=== PATIENT | female | born 1965 | race Caucasian/White ===

== ENCOUNTER → 2016-03-31 | Outpatient (CLI) | payer BC, OTHER ==
[2015-02-01 08:38] VITALS: BP 118/76
[~2016-03-31] MED LIST: ASPI325T4 PO; ATORVASTATIN CA80 MG PO; CLOP75TA PO; GEMF600T3 PO; INSU100V SQ; INSU300I SQ; LEVO125T5 PO; METF500T4 PO; METO25TA9 PO; PREG150C PO; SERT100T PO
--- NOTE | 2016-03-31 11:06 | KCIC ---
PROCEDURE MR of the right ankle HISTORY Right ankle pain. Achilles pain. Pain since June. TECHNIQUE Standard noncontrast images are obtained. COMPARISON None FINDINGS The peroneal tendons are intact. The anterior talofibular ligament is slightly thickened and ill-defined compatible with sprain. No rupture or laxity. Similar findings at the calcaneofibular ligament and posterior talofibular ligament. Anterior inferior tibiofibular ligament is intact. The posterior tibial and flexor tendons are intact. No acute tear of the medial ligamentous complex. The anterior tibial and extensor tendons are intact. There is moderate thickening of the distal Achilles tendon and the Achilles tendon insertion, measuring 15 mm wide by 12 mm AP just above the insertion. There is mild internal signal. However, no focal defect or rupture. Small enthesophytes at the adjacent calcaneus. The plantar aponeurosis is intact. Subtalar joints are patent. Tarsal sinus is intact. The talar dome is intact. Small tibiotalar and small posterior subtalar joint effusion. No bone lesion or acute fracture. Lisfranc ligament complex is intact as is tarsometatarsal alignment. No acute soft tissue injury. IMPRESSION 1. Moderate distal and insertional Achilles tendinosis. No acute defect or rupture. 2. Sprain or scarring of the lateral ankle ligaments. Electronically signed by: Jose Nicolas MD (Mar 31, 2016 11:05:19)
== END | disposition home or self-care (01) ==
LOC: KCIC MRI 09:04
PROVIDERS: ATTEND Podiatrist
DX: S93.431A Sprain of tibiofibular ligament of right ankle, initial encounter (principal); M76.61 Achilles tendinitis, right leg; M25.471 Effusion, right ankle; X58.XXXA Exposure to other specified factors, initial encounter; Y93.89 Activity, other specified; Y92.89 Other specified places as the place of occurrence of the external cause; Y99.8 Other external cause status
CPT/HCPCS: 73721

== ENCOUNTER 2016-07-08 07:59 | Day surgery (SDC) | payer OTHER ==
[~2016-07-08] VITALS: Ht 157.5 cm; Wt 103.4 kg
[~2016-07-08 07:59] MED LIST changes: +BUPIVACAINE MPF 0.5% 30 ML VIAL. ONE; +CLINDAMYCIN 900MG PREMIX 50 ML IV PRN; +CRESTOR20 MG PO; +CYCL10TA2 PO; +DICL75TA PO; +ERYT250T14 PO; +FURO20TA3 PO; +HYDROmorphone 2 MG/ML VIAL IV PRN; +INSU100I32 SQ; +IV RINGERS,LACTATED 1000ML 1,000 ML IV SCH; +LIDOCAINE 1% 1 ML SYRINGE. ID PRN; +LIDOCAINE 1% 20 ML VIAL. ONE; +ONDANSETRON PF 4 MG/2 ML VIAL. IV PRN; +POTA10TA12 PO; +PROCHLORPERAZINE 10 MG/2 ML VIAL. IV PRN; +TRAZ100T12 PO; +fentaNYL PF VIAL 100 MCG/2 ML VIAL IV PRN
[2016-07-08] MEDS ORDERED: LIDOCAINE 2% 100 MG/5 ML SYRINGE. ONE (08:07)
[2016-07-08] MEDS ORDERED: PROPOFOL 20 ML IV ONE (08:07)
[2016-07-08] MEDS ORDERED: fentaNYL PF VIAL 100 MCG/2 ML VIAL ONE (08:07)
[2016-07-08] MEDS ORDERED: SUCCINYLCHOLINE 200 MG/10 ML VIAL. ONE (09:17)
[2016-07-08] MEDS ORDERED: ePHEDrine PF IN SALINE 50 MG/5 ML DISP.SYRIN IV ONE (10:28)
[2016-07-08] MEDS ORDERED: DEXAMETHASONE SOD PHOS 20 MG/5 ML VIAL. ONE (10:28)
[2016-07-08] MEDS ORDERED: ROPIVacaine 0.5% PF 30 ML VIAL. ONE (10:28)
[2016-07-08] MEDS ORDERED: SEVOFLURANE 61 TO 120 MINUTES. IH ONE (10:28)
[2016-07-08] MEDS ORDERED: ACETAMINOPHEN INTRAVENOUS 100 ML IV ONE (10:28)
[2016-07-08] MEDS ORDERED: ONDANSETRON PF 4 MG/2 ML VIAL. ONE (10:52)
[2016-07-08] MEDS ORDERED: PHENYLEPHRINE in 0.9% NACL PF 1 MG/10 ML DISP.SYRIN. IV ONE (11:08)
--- NOTE | 2016-07-08 11:12 | DISCH ---
DISCHARGE INSTRUCTIONS Condition on Discharge Condition on Discharge: Stable Activity After Discharge Activity Instructions for Disc: Other, see below Bathing Instructions: Shower-keep dressing dry Weight Bearing Status after Di: Non weight bearing Diet after Discharge Diet after Discharge: Regular Wound Incision Care Wound/Incision Care: Ice to area for comfort, Keep wound/cast CDI, Keep wound elevated, Do not change dressing Contacting the DRDestiny after DC Call your doctor for: Concerns you may have Follow-Up Follow up with: Maci in 2wks REX TAVARES II, MD July 08, 2016 11:12
--- NOTE | 2016-07-08 11:14 | PDOC ---
BRIEF OPERATIVE NOTE Date: July 08, 2016 Pre-Op Diagnosis R chronic Achilles tendonitis Post-Op Diagnosis same Procedure Performed R Achilles debridement; R Angela Surgeon Maci Ostomy Rn Naya Anesthesiologist [facility] Anesthesia Type: General Blood Loss 10mL Complications none REX TAVARES II, MD July 08, 2016 11:14
[2016-07-08] MEDS ORDERED: oxyCODONE/APAP 5/325 1 TAB TABLET ONE (12:23)
[2016-07-08] MEDS ORDERED: DOCU-27 PO (12:28)
[2016-07-08] MEDS ORDERED: OXYC-323 PO (12:28)
[2016-07-08] MEDS ORDERED: ONDA4TAB10 SL (12:29)
[2016-07-08] MEDS ORDERED: oxyCODONE/APAP 5/325 1 TAB TABLET PO ONE (12:30)
[2016-07-08 13:01] VITALS: BP 121/58
--- NOTE | 2016-07-08 17:19 | OP ---
DATE OF SURGERY: 07/08/2016 SURGEON: Joao Tavares M.D. SNOW GROOMER: Jesica Person. ANESTHESIA: General. PREOPERATIVE DIAGNOSIS: Chronic right Achilles tendinitis. POSTOPERATIVE DIAGNOSIS: Chronic right Achilles tendinitis. PROCEDURES PERFORMED: 1. Open right Achilles tendon debridement. 2. Right Angela procedure. COMPLICATIONS: None. ESTIMATED BLOOD LOSS: 10 mL. TOURNIQUET TIME: 20 minutes. FINDINGS: The patient had some small amount of disorganized and yellow-appearing material midsubstance at the distal portion of her Achilles. REASON FOR PROCEDURE: The patient is a very pleasant 51-year-old female who has suffered from, approximately one year of, Achilles pain. She had failed conservative therapies including injections, anti-inflammatories, and several rounds of physical therapy and walking boot. Because of this, we had a discussion of risks, benefits, and alternatives of the above procedure and she elected to proceed. DESCRIPTION OF PROCEDURE: The patient was greeted in the preoperative area by myself, where the same extremity was marked and verified. She was taken to the operative suite and antibiotics were started en route. Once in the OR, she was transferred gently supine to the OR table and had successful induction of general anesthesia. All pressure points were padded and she was secured to the bed. We then placed a nonsterile tourniquet to her right thigh. We then proceeded to prep and drape right lower extremity in a usual sterile fashion and conducted a standard preoperative timeout. The toes were covered with Coban. I then exsanguinated the extremity with an Esmarch and insufflated the tourniquet to 300 mmHg. I then palpated for her transition zone between her gastroc muscle and tendons expansion at her mid-calf and made approximately an 8 cm incision transverse or longitudinally along her calf. I dissected the subcutaneous tissue and cauterized bleeders with electrocautery. I identified the fascia and incised this in line with skin incision. I then identified the proximal gastroc tendon and I bluntly and digitally freed it up from adhering tissue and then placed my vaginal speculum ensuring I protected the sural nerves and ensuring that the full tendon was visible. I then released this with my Metzenbaums scissors. This gave approximately another 15 degrees of dorsiflexion. We were able to get her a well past neutral compared to preop, which was a neutral during my examination under anesthesia. After this, I then palpated for her Achilles tendon central portion and made an incision just medial to that for approximately 4-5 cm corresponding to the area on MRI, which I have reviewed. I then used a [place] to tease apart the fibers in the mid portion and worked in this area until I identified what I thought would correspond to the abnormal appearing tissue on MRI. I used a small curette to debride some yellowish tissue from the mid portion and mid substance of the Achilles tendon. After doing this, I then repaired my longitudinal split with a 2-0 Ethibond, simple interrupted. I then closed the skin with 2-0 nylon in a horizontal mattress fashion. We then let the tourniquet down and cauterized a couple of bleeders around my Angela procedure site and then I irrigated this out. I then closed the fascia with a combination of simple interrupted and a [id number] 0 Vicryl. Inverted interrupted 2-0 was used for subcutaneous tissue, running 4-0 Monocryl was used in a subcuticular fashion was used for skin at the Angela site. Prior to completion of wound closure, all counts were reported correct x 2. No complications. I then injected approximately 15 mL of a local anesthetic mixture into the elias-incisional areas. After this, the leg was cleansed and dry and sterile dressing was applied after Steri-Strips and Xeroform gauze were applied. Sterile cast paddings then applied and we then placed into a well-padded AO splint. Postop plan is to discharge her from the hospital stay. She will be nonweightbearing. She will follow up with me in 2 weeks, sooner should problems arise. JOAO TAVARES MD DR: JOBY/patience JOB#: [id number] / [id number] SAYRA
== END 2016-07-08 13:15 | disposition home or self-care (01) ==
LOC: SURG 07:59
PROVIDERS: ATTEND Orthopaedic Surgery Sports Medicine
DX: M76.61 Achilles tendinitis, right leg (principal); E78.00 Pure hypercholesterolemia, unspecified; I10 Essential (primary) hypertension; E11.9 Type 2 diabetes mellitus without complications; F41.9 Anxiety disorder, unspecified; F32.9 Major depressive disorder, single episode, unspecified; Z90.710 Acquired absence of both cervix and uterus; Z98.42 Cataract extraction status, left eye; Z86.73 Personal history of transient ischemic attack (TIA), and cerebral infarction without residual deficits; Z98.41 Cataract extraction status, right eye; Z90.49 Acquired absence of other specified parts of digestive tract; Z98.890 Other specified postprocedural states
CPT/HCPCS: 27687; 82947; J0131; J0780; J1100; J2370; J2405; J2704; J2795; J3010; J3490; J0330

== ENCOUNTER → 2016-12-08 | Outpatient (CLI) | payer OTHER ==
[~2016-12-08] MED LIST changes: -ASPI325T4 PO; +ASPI325T8 PO; -BUPIVACAINE MPF 0.5% 30 ML VIAL. ONE; -CLINDAMYCIN 900MG PREMIX 50 ML IV PRN; +DOCU-109 PO; -HYDROmorphone 2 MG/ML VIAL IV PRN; -IV RINGERS,LACTATED 1000ML 1,000 ML IV SCH; -LIDOCAINE 1% 1 ML SYRINGE. ID PRN; -LIDOCAINE 1% 20 ML VIAL. ONE; +METO-239 PO; -METO25TA9 PO; +ONDA4TAB10 SL; -ONDANSETRON PF 4 MG/2 ML VIAL. IV PRN; +OXYC-323 PO; -PROCHLORPERAZINE 10 MG/2 ML VIAL. IV PRN; -fentaNYL PF VIAL 100 MCG/2 ML VIAL IV PRN
--- NOTE | 2016-12-08 13:13 | KCIC ---
MRI Lumbar Spine without contrast History: Low back pain, radiculopathy, falls Technique: Multiplanar, multi sequential noncontrast MR imaging was performed of the lumbar spine. Contrast: None Comparison: October 23, 2015 Findings: Lumbar vertebral body stature and AP alignment are preserved. There is again minimal degenerative disc disease L1-2. Conus terminates normally at L1-2. There is no significant marrow edema. There is again prominent subcutaneous edema of the lower back. L3-L4: There is again mild buckling of the ligamentum flavum and facet degenerative change. Neural foramina and spinal canal remain adequate. L4-L5: There is again negligible posterior bulge. Spinal canal is overall adequate. Neural foramina are adequate. L5-S1: Spinal canal and neural foramina are adequate. Impression: 1. There is no new significant lumbar spinal stenosis or neural foramina compromise. There is again minimal degenerative disc disease L1-2. There is again nonspecific edema of the posterior subcutaneous fat of the lower back. Electronically signed by: Lisandro Rosenthal MD (12/08/2016 1:10 PM) [facility]
== END | disposition home or self-care (01) ==
LOC: KCIC MRI 12:19
DX: M51.16 Intervertebral disc disorders with radiculopathy, lumbar region (principal)
CPT/HCPCS: 72148

== ENCOUNTER → 2017-01-07 | Outpatient (CLI) | payer OTHER ==
[~2017-01-07] MED LIST changes: +CHOL100013 PO; +ERYT250C8 PO; +TORS20TA2 PO; +TRAM50TA PO
--- NOTE | 2017-01-08 00:39 | PAIN ---
DATE OF SERVICE: 01/07/2017 CHIEF COMPLAINT: Low back, bilateral lower extremity pain. HISTORY OF PRESENT ILLNESS: This is a 51-year-old female who presents with history of pain, back and bilateral lower extremities since about 09/2015, gradually increasing, not a result of any specific injury or action that she is aware of but this has been increasingly worse in the low back, bilateral lower extremities, radiating in the posterior gluteus, thighs, lower legs also anterior thighs, medial thighs, lower legs, medial calves to the ankle bilaterally. The patient reports essentially worse on the left than the right but present bilaterally, almost as intense equally. The patient reports it is a sharp, throbbing, shooting with numbness and tingling, radiating pain, cramping, burning, stinging, aching, wakes her from sleep about twice a night, does not affect her bowel or bladder control, but does affect her ability to walk. She uses a walker or cane occasionally, and has a cane with her today. The patient has had physical therapy in 11/2016 at [facility] which was helpful but only temporarily, is doing all the exercises on her own continuously and still having some significant pain. The patient rates her disability rating from 0 to 10; 10 being the worst, is at 9 with family and home responsibilities, social activity, occupation; 8 with recreation and sexual activities; 7 with self care and life support activities is 6 on a scale of 10. The patient has tried tramadol as well, which does not significantly decrease the pain and is no longer taking this. The patient did have MRI scan dated 12/08/2016 showing comparison from 10/23/2015 no new significant lumbar stenosis or neural foraminal compromise. Minimal degenerative disk disease at L1-L2 with L3-L4 mild buckling of ligamentum flavum and facet degenerative change. L4-L5 shows negligible posterior bulge overall adequate spinal canal or neural foramina. The patient reports no loss of motor function, but her lower extremities fatigue significantly much faster than they did a year ago, again worse slightly on the left than the right, better with sitting or lying down but still waking her from sleep at night, much worse with walking and standing, change in positions for about 15 minutes on her feet before she has to find a place to sit and rest. PAST MEDICAL HISTORY: Significant for type 2 diabetes, insulin-dependent; hypertension, coronary artery disease with stents placed and open bypass grafting; history of gastroparesis; gastritis; dizziness; headaches; arthritis; peripheral neuropathy; history of stroke; carpal tunnel syndrome. PREVIOUS SURGERY: Include carpal tunnel repair, cataract extractions, coronary artery bypass grafting, hysterectomy, ankle surgery, neck tumor removed, appendectomy. CURRENT MEDICATIONS: Include cyclobenzaprine, diclofenac, potassium, Crestor, insulin, metoprolol, metformin, levothyroxine, Lyrica, torsemide, tramadol, erythromycin, vitamin D, Colace, clopidogrel, sertraline and daily baby aspirin. ALLERGIES: The patient is allergic to PENICILLIN, CODEINE, SULFA, and MORPHINE. FAMILY HISTORY: Significant for cancer, heart disease, strokes, hypertension, thyroid disease, cholesterol and obesity as well as diabetes. SOCIAL HISTORY: The patient does not smoke, does not drink alcohol. Single, lives on her own, currently in [place], [place]. REVIEW OF SYSTEMS: The patient's review of systems is positive for those items mentioned in history of present illness. All systems reviewed and otherwise negative. It is complete, full and well documented on the patient's chart. PHYSICAL EXAMINATION: VITAL SIGNS: The patient's blood pressure is 102/47, pulse 57, respirations 18, temperature 98.4 degrees Fahrenheit, height is 5 feet 2 inches, weighs 234 pounds. GENERAL: The patient is awake, alert, oriented, appropriate, very pleasant demeanor. HEENT: Shows normocephalic, atraumatic. Extraocular movements are intact, symmetrical. Oral cavity, mucous membranes are moist and pink. Dentition is intact. NECK: Shows anterior throat supple without palpable lymphadenopathy noted. Swallow reflex is symmetrical. CHEST: Shows normal on inspection. Breath sounds clear to auscultation bilaterally. HEART: Shows S1 and S2 clear. ABDOMEN: Soft, obese, nontender, nondistended. No palpable organomegaly. No rebound or guarding demonstrated. BACK: Shows spine grossly midline. Slight exaggeration of thoracic kyphosis and mild flattening of lumbar lordotic curvature. No previous bruises, lesions, scars or lesions noted on the skin. The patient's lumbar paraspinous muscle shows symmetrical on inspection with palpation shows some moderate tenderness diffusely throughout the upper, middle and lower distribution bilaterally, right equal to left. The patient shows good rotation and motion of the lumbar spine, both laterally greater than 10 degrees right and left as well as extension greater than 10 degrees, forward flexion 45 degrees without significant pain reported. No tenderness over the sacrum or sacroiliac regions. Lower extremities show deep tendon reflexes at 1+ in the patellar and tendo calcaneus tendons. Motor exam is approximately 4 on a scale of 5, but equal and symmetrical with dorsiflexion, extension, quadriceps and hamstring flexion. Peripheral pulses are 1+ posterior tibial and dorsalis pedis pulses. No peripheral edema is noted. No clubbing, no cyanosis. Lower extremities are warm and dry to touch, equal in color and appearance. Straight leg raise noted to be positive on the left at about 40 degrees right at about 45 degrees, both are decreased with knee flexion. Gaenslen's and Bert's maneuvers are negative bilaterally. The patient is able to stand. It is difficult to even stand on her toes as she loses balance quickly and walks with a slight shuffling gait, appears to favor the left lower extremity slightly more than right, again using a cane in her right hand. IMPRESSION: 1. This is a 51-year-old female with approximate a year and half history of low back, bilateral lower extremity pain in a radicular fashion with both L4-L5 and L5-S1 dermatomal distribution. 2. MRI scan of lumbar spine as noted. 3. Hypertension. 4. Coronary artery disease. 5. Arthritis. 6. Diabetes. PLAN: Options were discussed with the patient including conservative medical management, physical therapy and interventional technique. She would like to pursue interventional techniques. 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 The patient will continue taking medication. We will check with Cardiology and if this is deemed safe and appropriate, we will have her hold it at that time and return for epidural injection. In the meantime, the patient will continue with exercise as well as stretching and strengthening exercises that she is doing and will follow up as scheduled. LULÚ CHAMORRO MD DR: ANISA/patience JOB#: [id number] / [id number] NESTOR Carlos
== END | disposition home or self-care (01) ==
LOC: PNCL 07:55
PROVIDERS: ATTEND Anesthesiology
DX: I10 Essential (primary) hypertension (principal); E11.9 Type 2 diabetes mellitus without complications; I25.10 Atherosclerotic heart disease of native coronary artery without angina pectoris; M54.17 Radiculopathy, lumbosacral region; M79.605 Pain in left leg; G56.00 Carpal tunnel syndrome, unspecified upper limb; Z88.0 Allergy status to penicillin
CPT/HCPCS: 99214

== ENCOUNTER → 2017-01-19 | Outpatient (CLI) | payer OTHER ==
[~2017-01-19] MED LIST changes: +IOHEXOL 180 MG/ML 10 ML VIAL. ONE; +methylPREDNISolone ACETATE 40 MG/ML VIAL. ONE; +methylPREDNISolone ACETATE 80 MG/ML VIAL. ONE
--- NOTE | 2017-01-19 11:23 | PAIN ---
DATE OF SERVICE: 01/19/2017 DIAGNOSES: Lumbar radiculopathy with lumbar degenerative disk disease. HISTORY OF PRESENT ILLNESS: The patient is a 51-year-old female who returns for followup status post evaluation and holding her Plavix after clearance from her primary physician. She has been off it now for 7 days. The patient returns reporting still significant pain in the low back, bilateral lower extremities, somewhat worse on the left than the right, as it was before. No new motor or sensory deficits, no new bowel or bladder incontinence, still significant pain, radiating to posterior gluteus, posterior thighs, lateral thighs, anterior thighs, medial and posterior lower legs, is an aching, sharp quality, shooting, stabbing, cramping, tingling as well as radiating and severe. It is on and off in intensity, but always present. The patient reports it is a 10 on a scale of 10 at its worst, 8 on average, is a 5 at its least and is a 5 today. The patient reports it is worse with standing, walking, changing positions, better with lying down, but it can awaken her from sleep occasionally, not every night. PHYSICAL EXAMINATION: VITAL SIGNS: Today, patient's blood pressure is 116/65, pulse 50, respirations 18, temperature is 98.4 degrees Fahrenheit, height is 5 feet 2 inches, weight is 236 pounds. GENERAL: The patient is awake, alert, oriented, appropriate, very pleasant demeanor. HEENT: Shows normocephalic, atraumatic. Extraocular movements are intact and symmetrical. Oral cavity: Mucous membranes moist and pink. Dentition is intact. NECK: Shows anterior throat supple without palpable lymphadenopathy noted. Swallow reflex is symmetrical. CHEST: Shows normal with inspection. Breath sounds are clear to auscultation bilaterally. HEART: Shows S1 and S2 clear. ABDOMEN: Obese, soft, nontender, nondistended. No palpable organomegaly. No rebound or guarding demonstrated. BACK: Shows spine grossly midline, slight exaggeration of thoracic kyphosis and minor flattening lumbar lordotic curvature. No previous bruises, lesions, rashes or scars are noted. Lumbar paraspinous muscle shows roughly symmetrical on inspection with palpation shows some moderate tenderness in the middle and lower distribution of paraspinous muscles diffusely without radiation. No tenderness over the sacrum or sacroiliac regions or the spinous processes. The patient has good rotation and motion both laterally as well as extension and flexion without difficulty. EXTREMITIES: Lower extremities show deep tendon reflexes at 1+ in the patellar and tendo calcaneus tendons. Motor exam is approximately 4/5, but symmetrical and equal with dorsiflexion, extension, quadriceps and hamstring flexion. Peripheral pulses are 1+ in the posterior tibial distribution. No peripheral edema is noted. Options were discussed with the patient. The patient's old chart was reviewed as her current medication regimen and updated. Current review of systems is updated today as well. We will proceed with a lumbar epidural steroid injection today. She has been off her Plavix now for a week. Risks were again discussed including, but not limited to bleeding, infection, possibility of epidural hematoma, subsequent neurologic compromise, dural puncture, headaches, spinal cord and/or nerve damage, side effects of steroid medication and poor results regarding pain control. The patient understands and wished to proceed. The patient will return to clinic in approximately 2 weeks for followup, was counseled on return appointment, activity level and side effects to be aware of. DIAGNOSIS: Lumbar radiculopathy with lumbar degenerative disk disease. PROCEDURE: Lumbar epidural steroid injection, translaminar approach at L4-L5 level using C-arm fluoroscopic guidance under sterile prep and drape using local anesthetic. Medication injected is a total of 120 mg Depo-Medrol plus 10 mL of preservative-free normal saline and 2 mL of Isovue for contrast. CONDITION AT DISCHARGE: Stable. The patient tolerated the procedure well, had no complications. LULÚ CHAMORRO MD DR: ANISA/patience JOB#: [id number] / [id number]
== END | disposition home or self-care (01) ==
LOC: PNCL 09:47
PROVIDERS: ATTEND Anesthesiology
DX: M51.16 Intervertebral disc disorders with radiculopathy, lumbar region (principal); I25.10 Atherosclerotic heart disease of native coronary artery without angina pectoris; E78.00 Pure hypercholesterolemia, unspecified; E11.9 Type 2 diabetes mellitus without complications; E03.9 Hypothyroidism, unspecified; F41.9 Anxiety disorder, unspecified; F32.9 Major depressive disorder, single episode, unspecified; Z72.89 Other problems related to lifestyle; Z98.41 Cataract extraction status, right eye; Z98.42 Cataract extraction status, left eye; Z98.890 Other specified postprocedural states; Z86.69 Personal history of other diseases of the nervous system and sense organs; Z90.710 Acquired absence of both cervix and uterus; Z86.73 Personal history of transient ischemic attack (TIA), and cerebral infarction without residual deficits; Z87.39 Personal history of other diseases of the musculoskeletal system and connective tissue; Z88.6 Allergy status to analgesic agent; Z88.0 Allergy status to penicillin; Z88.2 Allergy status to sulfonamides
CPT/HCPCS: 62323; J1030; J1040

== ENCOUNTER → 2017-02-09 | Outpatient (CLI) | payer OTHER ==
--- NOTE | 2017-02-09 12:04 | PAIN ---
DATE OF SERVICE: 02/09/2017 PROGRESS NOTE FOR PAIN CLINIC DIAGNOSIS: Lumbar radiculopathy with lumbar degenerative disk disease. HISTORY OF PRESENT ILLNESS: This is a 51-year-old female who returns for followup status post lumbar epidural steroid injection x 1. The patient reports approximately 90% improvement in her low back and bilateral lower extremity pain. The patient reports that the legs are doing much better. Still some pain across the low back into the posterior gluteus and hips but only posteriorly and only intermittently. The patient reports it is aching, sharp, dull tight shooting, cramping and stabbing, but on and off in intensity and is not severe and is not bearable as it was previously. The patient reports she has been sleeping well at night, wakens her from sleep occasionally but not every night. The patient reports she has been increasing her activity greater ease and comfort and has been walking better, standing, changing positions; still has some tenderness with standing and walking but much better with sitting or lying down. The patient reports the pain is a 9 on a scale 10 at its worst, 4 on average, 1 at its least and is 4 today. The patient reports no new motor or sensory deficits. No new bowel or bladder incontinence or other complaints and very pleased with her progress thus far. PHYSICAL EXAMINATION: VITAL SIGNS: Today, the patient's blood pressure is 115/66, pulse 59, respirations are 18, temperature is 98.2 degrees Fahrenheit, height is 5 feet 2 inches and weight is 231 pounds. GENERAL: The patient is awake, alert, oriented, appropriate and very pleasant demeanor. HEENT: Head shows normocephalic and atraumatic. Extraocular movements are intact, symmetrical. Oral cavity: Mucous membranes moist and pink. Dentition intact. NECK: Shows anterior throat supple without palpable lymphadenopathy noted. Swallow reflex symmetrical. Neck shows full rotational motion of the cervical spine including extension, flexion and lateral rotation to right and left without difficulty. CHEST: Shows breath sounds clear to auscultation bilaterally, normal on inspection. HEART: Shows S1 and S2 clear. ABDOMEN: Obese, soft, nontender and nondistended. No palpable organomegaly is noted. No rebound or guarding demonstrated. BACK: The patient's back shows spine grossly in the midline. Slight exaggeration of the thoracic kyphosis and mild flattening lumbar lordotic curvature. No previous bruises, lesions, rashes or scars are noted. Lumbar paraspinous muscle shows some symmetry on inspection with palpation shows moderate tenderness bilaterally with palpation but only diffusely in the middle and lower distribution of the paraspinous muscles. No radiation, no trigger points and no tenderness over the sacrum or sacroiliac regions. EXTREMITIES: Lower extremities show deep tendon reflexes at 1+ in the patellar and tendo-calcaneus tendons. Motor exam is approximately 4 on a scale of 5 and equal and symmetrical dorsiflexion, extension, quadriceps and hamstring flexion. Peripheral pulses are 1+ posterior tibial. No peripheral edema is noted bilaterally. Options were discussed with the patient. The patient's old chart was reviewed as well as her current medication regimen updated. Current review of systems updated today as well and we will proceed with a second in the series lumbar epidural steroid injection today with fluoroscopic guidance. Risks were again discussed including, but not limited to bleeding, infection, possibility of epidural hematoma, subsequent neurologic compromise, dural puncture, headaches, spinal cord and/or nerve damage, side effects of steroid medication and poor results regarding pain control. The patient understands and wished to proceed. The patient will return to clinic in approximately 2 weeks for followup. She was counseled to return appointment, activity level and side effects to be aware of. DIAGNOSIS: Lumbar radiculopathy with lumbar degenerative disk disease. PROCEDURES: Lumbar epidural steroid injection, translaminar approach at the L4-L5 level using C-arm fluoroscopic guidance under sterile prep and drape using local anesthetic. MEDICATION INJECTED: A total of 120 mg Depo-Medrol plus 10 mL of preservative-free normal saline and 2 mL of Isovue for contrast. CONDITION AT DISCHARGE: Stable. The patient tolerated the procedure well, had no complications. LULÚ CHAMORRO MD DR: ANISA/patience JOB#: [id number] / [id number]
== END | disposition home or self-care (01) ==
LOC: PNCL 09:48
PROVIDERS: ATTEND Anesthesiology
DX: M51.16 Intervertebral disc disorders with radiculopathy, lumbar region (principal); I25.10 Atherosclerotic heart disease of native coronary artery without angina pectoris; E78.00 Pure hypercholesterolemia, unspecified; I10 Essential (primary) hypertension; E03.9 Hypothyroidism, unspecified; F41.9 Anxiety disorder, unspecified; F32.9 Major depressive disorder, single episode, unspecified; Z98.41 Cataract extraction status, right eye; Z72.89 Other problems related to lifestyle; Z98.42 Cataract extraction status, left eye; Z86.69 Personal history of other diseases of the nervous system and sense organs; Z98.890 Other specified postprocedural states; Z90.710 Acquired absence of both cervix and uterus; Z88.6 Allergy status to analgesic agent; Z88.5 Allergy status to narcotic agent; Z88.0 Allergy status to penicillin; Z88.2 Allergy status to sulfonamides
CPT/HCPCS: 62323; J1030; J1040

== ENCOUNTER → 2019-04-21 | Outpatient (CLI) | payer MEDICARE ==
[~2019-04-21] MED LIST changes: -GEMF600T3 PO; +GEMF600T8 PO; -INSU100V SQ; +INSU100V6 SQ; -IOHEXOL 180 MG/ML 10 ML VIAL. ONE; +METF500T16 PO; -METF500T4 PO; -OXYC-323 PO; +OXYC1TAB15 PO; -POTA10TA12 PO; +POTASSIUM CHLO10 ME1 PO; +TRAZ-123 PO; -TRAZ100T12 PO; -methylPREDNISolone ACETATE 40 MG/ML VIAL. ONE; -methylPREDNISolone ACETATE 80 MG/ML VIAL. ONE
--- NOTE | 2019-04-23 07:21 | KCIC ---
EXAM: Lumbar spine MRI without contrast. HISTORY: Radiculopathy. TECHNIQUE: Multiplanar, multisequence magnetic resonance imaging of the lumbar spine was performed without contrast. COMPARISON: 12/08/2016 FINDINGS: There is mild thoracolumbar dextroscoliosis centered at the thoracolumbar junction. There is no listhesis. There is degenerative endplate remodeling at multiple levels. There are few small endplate Schmorl's nodes. The conus terminates at L1. There is no fracture. There is no suspicious osseous lesion. At T11-T12, there is a small posterior central disc protrusion. There is no stenosis. At T12-L1, there is no stenosis. At L1-L2, there is a disc bulge and left anterior predominant endplate osteophytosis. There is no stenosis. At L2-L3, there is a disc bulge. There is minimal bilateral facet arthropathy. There is no stenosis. At L3-L4, there is a disc bulge. There is minimal left foraminal stenosis. At L4-L5, there is a disc bulge. There is minimal facet arthropathy. There is no stenosis. At L5-S1, there is a disc bulge. There is no stenosis. IMPRESSION: Mild multilevel degenerative change involving the lumbar spine and lower thoracic spine. This is not significantly changed compared to the prior exam. Electronically signed by: Danay Ying MD (04/23/2019 7:19 AM) [id number]
== END | disposition home or self-care (01) ==
LOC: KCIC MRI 15:42
PROVIDERS: ATTEND Physician Assistant Medical
DX: M47.26 Other spondylosis with radiculopathy, lumbar region (principal); M47.814 Spondylosis without myelopathy or radiculopathy, thoracic region; M51.16 Intervertebral disc disorders with radiculopathy, lumbar region; M51.24 Other intervertebral disc displacement, thoracic region; M41.85 Other forms of scoliosis, thoracolumbar region; M51.46 Schmorl's nodes, lumbar region; M12.88 Other specific arthropathies, not elsewhere classified, other specified site
CPT/HCPCS: 72148

== ENCOUNTER → 2020-02-29 | Outpatient (CLI) | payer MEDICARE ==
[~2020-02-29] MED LIST changes: +ERYT250C33 PO; -ERYT250C8 PO; +GEMF600T20 PO; -GEMF600T8 PO
--- NOTE | 2020-02-29 15:43 | KCIC ---
MR LUMBAR SPINE WO [id number] History: Reason: L HIP PAIN L KNEE PAIN LUMBAR RADICULOPATHY / Spl. Instructions: / History: Worseni ng left hip, leg and knee pain in recent mths. Technique: Multiplanar, multi sequential MR imaging was performed of the lumbar spine. Comparison: April 21, 2019 Findings: Several sequences are motion degraded. Normal vertebral body height and alignment. No fracture. Conus terminates at the normal location. No evidence of nerve root clumping. Posterior subcutaneous nonspecific edema, unchanged. T11-T12: Posterior disc protrusion. No canal or neuroforaminal narrowing. T11-12: No canal or neuroforaminal narrowing. L1-L2: Small disc bulge. Mild facet arthropathy. No canal or neuroforaminal narrowing. L2-L3: Small foraminal disc protrusions. No canal narrowing. Facet arthropathy. No neuroforaminal na rrowing. L3-L4: Small broad-based disc bulge. No canal narrowing. Minimal neuroforaminal narrowing. L4-L5: Broad-based disc bulge. Mild facet arthropathy. Subarticular recess narrowing. No canal narro wing. Minimal bilateral neuroforaminal narrowing. L5-S1: Disc bulge. Mild facet arthropathy. No canal narrowing. No neuroforaminal narrowing. When compared the prior examination the degenerative findings are similar. Impression: 1. Mild multilevel lumbar spondylosis, unchanged. Electronically signed by: Daniel Moseley DO (02/29/2020 3:41 PM) [id number]
--- NOTE | 2020-03-01 10:45 | KCIC ---
EXAMINATION: MRI LEFT LOWER EXTREMITY JOINT WITHOUT INDICATIONS: Left hip and knee pain. TECHNIQUE: Multiplanar multisequence MRI of the left hip was obtained without contrast. COMPARISON: CT abdomen pelvis 05/08/2019 FINDINGS: BONES AND CARTILAGE: No acute fracture. Marrow signal is normal. There is scattered superficial parti al-thickness cartilage loss. No full-thickness defects. No evidence of avascular necrosis. LABRUM: No discrete labral tear. MUSCLES, TENDONS, AND BURSAE: There is a partial tear of the left hamstrings tendon origin involving the common origin of the semitendinosis and biceps femoris tendons. There is fluid extending along th e proximal hamstrings muscles, likely the semitendinosis, in the proximal thigh, best seen on large f ield of view coronal images and not included in the [id number] on other images (image 8, series 3) . Mild edema in the adductor kendall muscle. Mild gluteus medius and minimus tendinopathy. The iliopso as, rectus femoris, and adductor tendons are intact. There is mild diffuse muscular atrophy. The isch iofemoral space is normal. Mild bilateral trochanteric bursitis.. OTHER: No joint effusion or synovitis. The ligamentum teres is intact. Subcutaneous soft tissues norm al. IMPRESSION: 1. Partial tear of the left hamstrings tendon origin and proximal hamstring musculature involving the semitendinosis. 2. Mild strain of the left adductor kendall muscle. 3. Mild left gluteus medius and minimus tendinopathy. Mild bilateral trochanteric bursitis. 4. Mild superficial partial-thickness cartilage loss of the left hip. No high-grade cartilage defect. Electronically signed by: Maddie Mike MD (03/01/2020 10:42 AM) [id number]
--- NOTE | 2020-03-01 13:25 | KCIC ---
EXAMINATION: MRI LEFT LOWER EXTREMITY JOINT WITHOUT INDICATIONS: Left knee pain. TECHNIQUE: Multiplanar multisequence MRI of the left knee was obtained without contrast. COMPARISON: None. FINDINGS: MENISCI: The medial and lateral menisci are intact. LIGAMENTS: The anterior and posterior cruciate ligaments are intact. The medial collateral ligament is intact. Mild focal thickening of the proximal fibular collateral ligament may be sequela of old in jury. The lateral collateral ligament complex is otherwise intact. EXTENSOR MECHANISM: The quadriceps and patellar tendons are intact. Fat pads are normal. Retinacula are intact. BONES AND CARTILAGE: No acute fracture or marrow edema. There is deep partial thickness cartilage lo ss along the patella, greatest laterally, and at the lateral trochlea. Medial and patellofemoral comp artment cartilage is intact without discrete defect. OTHER: No joint effusion. No Calle cyst. Trace fluid along the posterior medial knee. There is a 3 m m intermediate signal structure in the posterior joint recess posterior to the proximal ACL, seen onl y on axial T2 series (image 15, series 4). This is suspicious for an intra-articular body. There is m ild prepatellar bursitis. Diffuse subcutaneous edema. Mild diffuse muscular atrophy, greatest in the thigh. IMPRESSION: 1. No meniscal tear or acute ligamentous injury. 2. Deep partial-thickness cartilage loss in the patellofemoral compartment 3. Possible small intra-articular body in the posterior joint. 4. Diffuse muscular atrophy, greatest in the thighs. 5. Mild prepatellar bursitis and diffuse subcutaneous edema. Electronically signed by: Maddie Mike MD (03/01/2020 1:23 PM) [id number]
== END ==
LOC: KCIC MRI 12:20
PROVIDERS: ATTEND Nurse Practitioner Family
DX: S76.312A Strain of muscle, fascia and tendon of the posterior muscle group at thigh level, left thigh, initial encounter (principal); M47.26 Other spondylosis with radiculopathy, lumbar region; M48.061 Spinal stenosis, lumbar region without neurogenic claudication; M70.62 Trochanteric bursitis, left hip; M70.61 Trochanteric bursitis, right hip; M70.42 Prepatellar bursitis, left knee; M62.552 Muscle wasting and atrophy, not elsewhere classified, left thigh; X58.XXXA Exposure to other specified factors, initial encounter; Y93.89 Activity, other specified; Y92.89 Other specified places as the place of occurrence of the external cause; Y99.8 Other external cause status
CPT/HCPCS: 72148; 73721

== ENCOUNTER → 2021-02-17 | Outpatient (CLI) | payer MEDICARE ==
[~2021-02-17] MED LIST changes: +BUPR150T21 PO; +CYCL10TA19 PO; -CYCL10TA2 PO; +ESCI20TA8 PO; +GABA300C18 PO; +INSU100I13 SQ; +MELA10TA PO; +MEMA10TA PO; +SEMA1PEN3 SQ
[2021-02-17 14:56] LABS: BASO # 0.1 x10^3/uL (0.0-0.2); BASO % 1 % (0-3); EOS # 0.4 x10^3/uL (0.0-0.7); EOS % 5 % (0-3); HEMATOCRIT 36.6 % (36.0-47.0); HEMOGLOBIN 11.4 g/dL (12.0-15.5); LYMPH # 1.9 x10^3/uL (1.0-4.8); LYMPH % 23 % (24-48); MEAN CORPUSCULAR HEMOGLOBIN 23 pg (25-35); MEAN CORPUSCULAR HGB CONC 31 g/dL (31-37); MEAN CORPUSCULAR VOLUME 75 fL (79-100); MONO # 0.7 x10^3/uL (0.0-1.1); MONO % 8 % (0-9); NEUT # 5.3 x10^3/uL (1.8-7.7); NEUT % 64 % (31-73); PLATELET COUNT 162 x10^3/uL (140-400); RED BLOOD COUNT 4.87 x10^6/uL (3.50-5.40); RED CELL DISTRIBUTION WIDTH 20.9 % (11.5-14.5); WHITE BLOOD COUNT 8.3 x10^3/uL (4.0-11.0)
[2021-02-17 15:11] LABS: ALBUMIN 3.6 g/dL (3.4-5.0); ALBUMIN/GLOBULIN RATIO 0.9 (1.0-1.7); CALCIUM 8.5 mg/dL (8.5-10.1); CREATININE 1.2 mg/dL (0.6-1.0); GFR 46.5; POTASSIUM 4.4 mmol/L (3.5-5.1); TOTAL BILIRUBIN 0.4 mg/dL (0.2-1.0); TOTAL PROTEIN 7.6 g/dL (6.4-8.2)
[2021-02-17 15:19] LABS: ANISOCYTOSIS MOD; PLT ESTIMATE ADEQUATE (ADEQUATE)
[2021-02-18 13:08] VITALS: BP 116/52
== END ==
LOC: SURGPAT 13:36
PROVIDERS: ATTEND Neurological Surgery
DX: Z01.812 Encounter for preprocedural laboratory examination (principal); M48.02 Spinal stenosis, cervical region; M54.16 Radiculopathy, lumbar region; M54.50 Low back pain, unspecified; Z88.0 Allergy status to penicillin
CPT/HCPCS: 36415; 80053; 85025; 87641

== ENCOUNTER 2021-02-26 07:10 | Observation (INO) | payer MEDICARE ==
[2021-02-18 13:08] VITALS: BP 116/52
--- NOTE | 2021-02-25 12:38 | PREOP HP ---
DATE OF SERVICE: 02/26/2021 HISTORY OF PRESENT ILLNESS: The patient is a pleasant 56-year-old who is having difficulty with low back pain and bilateral buttock and lateral thigh and leg pain. The right and left sides are equal. She says the pain can become very severe and her legs can give out and she can fall. She rates her pain usually 7/10. She states she is only able to stand for about 10 minutes before the leg pain considerably worsens. Sitting helps. She takes Tylenol, tramadol, and Flexeril. She did epidural steroid injections in 03/2020 without lasting benefit. She had physical therapy in 04/2020, which she said helped her minimally. CURRENT MEDICATIONS: NovoLog, potassium, torsemide, metformin, Jardiance, Ozempic, Flexeril, melatonin, trazodone, tramadol, spironolactone, stool softener, Lyrica, bupropion, Crestor, gabapentin, aspirin, levothyroxine, Lantus. PAST MEDICAL HISTORY: Arthritis, angina, asthma, gout, chest pain, headaches, GA, hypertension, osteoporosis, shingles, stroke, thyroid disease, wound infection. PAST SURGICAL HISTORY: Appendectomy, T and A, tumor, hysterectomy, coronary artery bypass graft, ankle surgery. FAMILY HISTORY: Alzheimer disease, cancer, diabetes, heart disease, hypertension, GA, headaches. SOCIAL HISTORY: Retired, single, nonsmoker. Drinks alcohol 1-2 times per month. ALLERGIES: SULFA, MORPHINE, CODEINE, PENICILLIN. REVIEW OF SYSTEMS: A 12-point review of systems was performed and is noncontributory except that mentioned above. PHYSICAL EXAMINATION: GENERAL: Alert, pleasant, in no acute distress. HEENT: Head is normocephalic, atraumatic. SKIN: Warm and dry. MUSCULOSKELETAL: Lumbar paraspinal muscle bulk is normal, restricted range of motion of the lumbar spine, [id number] tenderness of the lower lumbar spine with palpation, normal range of motion of the lower extremities bilaterally. EXTREMITIES: No clubbing, cyanosis or edema. NEUROLOGIC: Alert and oriented x3. Strength is 5/5 in the bilateral lower extremities. Sensory was intact to light touch in the lower extremities bilaterally. Reflexes were present and symmetric in the lower extremities bilaterally. Negative straight leg raising bilaterally. Normal gait. IMAGING: I reviewed a lumbar MRI scan. Overall, she has mild facet arthropathy at several other levels. At L4-L5, there is a broad-based disk bulge and that combined with facet arthropathy is associated with subarticular recess narrowing bilaterally. ASSESSMENT AND PLAN: I believe the problems at L4-L5 are responsible for her symptoms. She has failed to improve with extensive conservative measures. I have recommended a lumbar micro-decompressive surgery bilaterally at L4-L5. I spoke with her about the surgery including the technique and the risk and expected postoperative course. She understands and would like to proceed. 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 RAE/DALIA DR: Quinton TID: [id number]
[~2021-02-26] VITALS: Ht 162.6 cm; Wt 110.8 kg
[2021-02-26] VITALS (10 sets, daily range): BP systolic 104–170; BP diastolic 45–91
[~2021-02-26 07:10] MED LIST changes: +BUPIVACAINE-EPI 0.5% 30 ML VIAL KIT. ONE; +DEXAMETHASONE SOD PHOS 4 MG/ML VIAL ONE; +GELATIN SPONGE SIZE 100. ONE; +KETOROLAC 60 MG/2 ML VIAL. ONE; +LIDOCAINE 2% PF 5 ML VIAL. ONE; +MIDAZOLAM HCL/PF 2 MG/2 ML VIAL. ONE; +ONDANSETRON PF 4 MG/2 ML VIAL. ONE; +PHENYLEPHRINE 10 MG/ML VIAL. ONE; +PROCHLORPERAZINE 10 MG/2 ML VIAL. IVP PRN; +PROPOFOL 10 MG/ML (20ML) VIAL. IV ONE; +PROPOFOL 50 ML IV ONE; +REMIFENTANIL 1 MG VIAL. IV ONE; +ROCURONIUM 50 MG/5 ML VIAL. ONE; +SUCCINYLCHOLINE 200 MG/10 ML VIAL. ONE; +THROMBIN TOPICAL 20,000 UNIT SPRAY.SYRN KIT TP ONE; +ceFAZolin SODIUM 1 GM in IV NORMAL SALINE 1000ML BAG 1,000 ML IRR ONE; +fentaNYL PF VIAL 100 MCG/2 ML VIAL IVP PRN; +fentaNYL PF VIAL 100 MCG/2 ML VIAL ONE
[2021-02-26] MEDS: IV RINGERS,LACTATED 1000ML 1,000 ML IV SCH ×2 (07:18→08:19)
[2021-02-26] MEDS ORDERED: fentaNYL PF VIAL 100 MCG/2 ML VIAL ONE (07:42)
[2021-02-26] MEDS ORDERED: INSULIN LISPRO 100 UNIT/ML 3ML VIAL for OP,RR ONLY. SQ PRN (08:15)
[2021-02-26] MEDS ORDERED: FAMOTIDINE 20 MG/2 ML VIAL IVP ONE (08:15)
[2021-02-26] MEDS ORDERED: REMIFENTANIL 1 MG VIAL. IV ONE ×2 (08:21→09:36)
[2021-02-26] MEDS ORDERED: INSULIN LISPRO 100 UNIT/ML 3ML VIAL for OP,RR ONLY. SQ ONE (08:30)
[2021-02-26] MEDS ORDERED: PROPOFOL 100 ML IV ONE (09:08)
[2021-02-26] MEDS ORDERED: SEVOFLURANE > 120 MINUTES. IH ONE (11:01)
[2021-02-26] MEDS ORDERED: ePHEDrine PF IN SALINE 50 MG/10 ML SYRINGE. IV ONE (11:01)
[2021-02-26] MEDS ORDERED: MINERAL OIL/PETROLATUM,WHITE OPHTH OINT 3.5GM TUBE. ONE (11:02)
[2021-02-26] MEDS ORDERED: GELATIN SPONGE SIZE 100. ONE (11:59)
[2021-02-26] MEDS: POTASSIUM CL 20MEQ D5-0.45NACL 1,000 ML IV SCH (13:00)
[2021-02-26] MEDS ORDERED: MAGNESIUM HYDROXIDE 2,400 MG/30 ML ORAL.SUSP. PO PRN (13:00)
[2021-02-26] MEDS ORDERED: ONDANSETRON PF 4 MG/2 ML VIAL. IVP PRN (13:00)
[2021-02-26] MEDS ORDERED: CALCIUM CARBONATE 500 MG TAB.CHEW PO PRN (13:00)
[2021-02-26] MEDS ORDERED: ACETAMINOPHEN 325 MG TABLET. PO PRN (13:00)
[2021-02-26] MEDS ORDERED: 0.9 % SODIUM CHLORIDE 10 ML DISP.SYRIN. IV PRN (13:00)
[2021-02-26] MEDS ORDERED: fentaNYL PF VIAL 100 MCG/2 ML VIAL IVP PRN (13:00)
[2021-02-26] MEDS ORDERED: MAG HYDROX/ALUMINUM HYD/SIMETH 30 ML ORAL.SUSP PO PRN (13:00)
[2021-02-26] MEDS ORDERED: diphenhydrAMINE HCL 25 MG CAPSULE PO PRN (13:00)
[2021-02-26] MEDS ORDERED: NALOXONE 0.4 MG/ML VIAL. IV PRN (13:00)
[2021-02-26] MEDS ORDERED: CYCLOBENZAPRINE 10 MG TABLET. PO PRN (13:00)
[2021-02-26] MEDS: PREGABALIN 75 MG CAPSULE PO SCH ×2 (14:00→21:13)
--- NOTE | 2021-02-26 14:00 | NUR ---
Arrived to unit by bed. Sedated, awakens but falls back to sleep. VS stable. IVF's intact and infusing. O2 at 2l per n/c. MADONNA's and SCD's on bilaterally. Side rails up x's 2 with call light in reach. Spoke with pt's sister. Cont. monitor.
[2021-02-26] MEDS ORDERED: traMADol 50 MG TABLET PO PRN (16:45)
[2021-02-26] MEDS: POTASSIUM CHLORIDE 10 MEQ TABLET.ER. PO SCH (18:07)
[2021-02-26] MEDS: metFORMIN 500 MG TABLET PO SCH (18:07)
[2021-02-26] MEDS: INSULIN LISPRO 300 UNITS/3 ML VIAL. SQ SCH (18:42)
--- NOTE | 2021-02-26 18:43 | NUR ---
Pt only took 15 units Humalog. States she adjusts the dosage depending on carbs. Will re check FSBS at HS.
[2021-02-26] MEDS ORDERED: INSULIN GLARGINE SYRINGE. SQ SCH (21:00)
[2021-02-26] MEDS ORDERED: NON FORMULARY ITEM (Melatonin 20 MG) PO SCH (21:00)
[2021-02-26] MEDS ORDERED: ATORVASTATIN CALCIUM 40 MG TABLET. PO SCH (21:00)
[2021-02-26] MEDS ORDERED: buPROPion XL 150 MG TAB.ER.24H. PO SCH (21:00)
[2021-02-26] MEDS ORDERED: DOCUSATE SODIUM 100 MG CAPSULE. PO SCH (21:00)
[2021-02-26] MEDS ORDERED: CITALOPRAM 20 MG TABLET. PO SCH (21:00)
[2021-02-26] MEDS ORDERED: GEMFIBROZIL 600 MG TABLET. PO SCH (21:00)
[2021-02-26] MEDS: MEMANTINE 10 MG TABLET. PO SCH (21:13)
[2021-02-26] MEDS: DOCUSATE SODIUM 100 MG CAPSULE. PO SCH (21:13)
[2021-02-26] MEDS: traZODone 100 MG TABLET. PO SCH ×2 (21:14→21:17)
[2021-02-26] MEDS: GABAPENTIN 100 MG CAPSULE. PO SCH (21:14)
[2021-02-26] MEDS: traMADol 50 MG TABLET PO SCH (21:14)
[2021-02-27] MEDS: POTASSIUM CL 20MEQ D5-0.45NACL 1,000 ML IV SCH (02:20)
[2021-02-27 03:14] VITALS: BP 103/47
[2021-02-27] MEDS ORDERED: LEVOTHYROXINE 137 MCG TABLET PO SCH (06:00)
[2021-02-27 07:00] VITALS: BP 96/42
[2021-02-27] MEDS: DOCUSATE SODIUM 100 MG CAPSULE. PO SCH (08:13)
[2021-02-27] MEDS: GABAPENTIN 100 MG CAPSULE. PO SCH (08:13)
[2021-02-27] MEDS: POTASSIUM CHLORIDE 10 MEQ TABLET.ER. PO SCH (08:14)
[2021-02-27] MEDS: metFORMIN 500 MG TABLET PO SCH (08:14)
[2021-02-27] MEDS: MEMANTINE 10 MG TABLET. PO SCH (08:14)
[2021-02-27] MEDS: PREGABALIN 75 MG CAPSULE PO SCH ×2 (08:14→14:00)
[2021-02-27] MEDS: traMADol 50 MG TABLET PO SCH (08:14)
[2021-02-27] MEDS: INSULIN LISPRO 300 UNITS/3 ML VIAL. SQ SCH ×2 (08:24→12:00)
[2021-02-27] MEDS ORDERED: ASPIRIN 325 MG TABLET PO SCH (09:00)
--- NOTE | 2021-02-27 09:52 | DISCH ---
DISCHARGE INSTRUCTIONS Condition on Discharge Condition on Discharge: Stable Activity After Discharge Activity Instructions for Disc: Activity as tolerated, Avoid exertion, Other, see below Other activity instructions: no driving for a week Bathing Instructions: Shower-keep dressing dry, No Tub Bath until see Weight Bearing Status after Di: Non weight bearing Diet after Discharge Diet after Discharge: Regular Additional Diet Restrictions: resume home diet Wound Incision Care Wound/Incision Care: Ice to area for comfort, Keep wound/cast CDI, Keep wound elevated, Do not change dressing Other wound/incision instructi: may remove dressing in 48 hours if dry or change dressing as needed Wound Care Equipment: Dressings, Sutures/iker Contacting the after DC Call your doctor for: Concerns you may have Follow-Up Follow up with: Dr. Gonzalez's nurse in 2 weeks [phone] ABRAHAM GONZALEZ MD Feb 27, 2021 09:52
[2021-02-27 11:00] VITALS: BP 101/52
--- NOTE | 2021-03-03 16:10 | PATHOLOGY ---
[facility] Accession Number: [id number] . 01 Material submitted: . vertebral column - LUMBAR DECOMPRESSION . 01 Clinical history: . LUMBAR STENOSIS RADICULOPATHY LUMBAR MICRODECOMPRESSION L4-5 BILATERAL . 02 Diagnosis: Segments of fibrocartilaginous, fibroadipose, and skeletal muscle tissue and bone, lumbar decompression: - Degenerative changes of fibrocartilaginous tissue. (JPM:michele; 03/03/2021) S 03/03/2021 1243 Local . 02 Comment: There is no evidence of an acute inflammatory process or malignancy. (JPM:michele; 03/03/2021) . 02 Electronically signed: . Miquel Judge MD, Pathologist NPI- [id number] . 01 Gross description: . Received in formalin labeled "White, Danica, lumbar decompression" are multiple fragments of patrick-brown friable soft tissue and scant bone measuring in aggregate 4.5 x 4.0 x 1.0 cm. Poultry Veterinarian tissue is submitted in cassette A1 following decalcification. ([facility]; 02/27/2021) [facility] 02/27/2021 0938 Local . 02 Pathologist provided ICD-10: M51.36 . 02 CPT . 736850, [id number] Specimen Comment: A courtesy copy of this report has been sent to [phone], [phone] Specimen Comment: [id number] Specimen Comment: Report sent to / DR CISNEROS Specimen Comment: A duplicate report has been generated due to demographic updates. Performed at: [address], [place], [place] [id number] MD Ross Hawthorne MD Phone: [phone] Performed at: 02 [facility] [address] [place], [place] [id number] MD Miquel Judge MD Phone: [phone]
--- NOTE | 2021-03-03 18:52 | OP ---
DATE OF SURGERY: 02/26/2021 PREOPERATIVE DIAGNOSIS: Subarticular recess stenosis with radiculopathy, L4-L5 bilateral. POSTOPERATIVE DIAGNOSIS: Subarticular recess stenosis with radiculopathy, L4-L5 bilateral. SURGEON: Taran Preciado M.D. OPERATIONS PERFORMED: Bilateral hemilaminotomies with decompression of dura and nerve root, partial foraminotomies, L4-L5. The operation was done with EMG monitoring, SSEP monitoring, fluoroscopy, microscopic dissection. OPERATIVE INDICATIONS: The patient is a pleasant 56-year-old woman who developed intractable back and bilateral leg pain. On imaging studies, she has significant subarticular lateral recess stenosis with nerve root compression. I recommended bilateral lumbar microdecompressive surgery after she failed to improve with physical therapy as well as epidural steroid injections. She understood the surgery and the risks. She understood the technique, she wished to go ahead. DESCRIPTION OF PROCEDURE: Following general endotracheal anesthesia, the patient was placed prone on the Angel table. Lumbar region was prepped and draped in standard fashion. MADONNA hose and AV impulse boots were applied for DVT prophylaxis. A microscope was draped, fluoroscopy was draped and brought into the field. Monitoring was established. Ancef 2 grams were given less than 1 hour prior to initiation of surgery. Using fluoroscopic guidance, a midline incision was made directly over the L4-L5 interspace. I dissected down through skin and subcutaneous tissue, I reflected the paraspinal muscles to the left and placed a Tyler microdisc retractor, brought in the microscope and using the high speed air drill and microscopic technique throughout for the remainder of the surgery, I burred down a generous hemilaminotomy. I then peeled away the thickened ligamentum flavum and performed a partial foraminotomy. I worked laterally to the inner aspect of the pedicle and I assured myself that the lateral stenosis was completely relieved and the dura moved quite nicely laterally and posteriorly. I went to the right side and I performed the identical operation on the right side without complication and fully decompressed the right side. I irrigated copiously with antibiotic solution. I palpated the disc, which was bulging slightly, but very firm and no discectomy was warranted. I irrigated copiously with antibiotic solution. I closed the wound in layers with absorbable suture and the skin was closed with 4-0 subcuticular stitch. I felt the surgery went very well. ELLA DR: Ajay TID: [id number]
[2021-03-05] MEDS ORDERED: NON FORMULARY ITEM (Semaglutide (Ozempic) 1 MG) SQ SCH (09:00)
== END 2021-02-27 13:55 | disposition home or self-care (01) ==
LOC: SURG 07:10 → 4 NORTH 13:06
PROVIDERS: ADMIT Neurological Surgery; ATTEND Neurological Surgery
DX: M54.16 Radiculopathy, lumbar region (principal); M48.062 Spinal stenosis, lumbar region with neurogenic claudication; I10 Essential (primary) hypertension; J45.909 Unspecified asthma, uncomplicated; M48.061 Spinal stenosis, lumbar region without neurogenic claudication; M81.0 Age-related osteoporosis without current pathological fracture; M19.90 Unspecified osteoarthritis, unspecified site; Z79.899 Other long term (current) drug therapy; Z86.73 Personal history of transient ischemic attack (TIA), and cerebral infarction without residual deficits; Z90.710 Acquired absence of both cervix and uterus; Z95.1 Presence of aortocoronary bypass graft; Z98.890 Other specified postprocedural states; Z90.49 Acquired absence of other specified parts of digestive tract
CPT/HCPCS: 63030; 82962; 97116; 97162; 97530; A4213; A4364; A4556; A4930; A6254; A6258; G0378; G0379; J0330; J0690; J1100; J1815; J1885; J2250; J2370; J2405; J2704; J3010; J3490; J7030; 76000; A4222; A4657